=== PATIENT | female | born 1970 | race Caucasian/White ===

== ENCOUNTER → 2017-01-23 | Outpatient (CLI) | payer OTHER ==
[~2017-01-23] MED LIST: MULTTAB58 PO; NORE1CHW11 PO
--- NOTE | 2017-01-24 12:35 | MAMMOGRAPHY REPORT ---
BILATERAL DIGITAL SCREENING MAMMOGRAM TOMOSYNTHESIS WITH CAD: 01/23/2017 CLINICAL HISTORY: Routine screening. Patient has no complaints. TECHNIQUE: Breast tomosynthesis in addition to standard 2D mammography was performed. Current study was also evaluated with a Computer Aided Detection (CAD) system. COMPARISON: Comparison is made to exams dated: 01/15/2016 mammogram and 11/12/2011 mammogram - [facility]. BREAST COMPOSITION: The tissue of both breasts is heterogeneously dense, which may obscure small ma sses. FINDINGS: There is a nodular 8 mm asymmetry seen within the left lateral breast on the cc view, pos sibly projecting inferiorly, which may represent normal overlapping fibroglandular tissue although s pot compression tomosynthesis views and possible breast ultrasound are recommended for further evalu ation. The remainder of both breasts are stable compared to prior exams, without suspicious masses, calcifi cations, or areas of architectural distortion noted. IMPRESSION: ACR BI-RADS CATEGORY 0: INCOMPLETE EVALUATION: NEED ADDITIONAL IMAGING EVALUATION Left lateral breast asymmetry, for which additional imaging evaluation is recommended. The patient w ill be called to schedule an appointment. Approximately 10% of breast cancers are not detected with mammography. A negative mammographic repor t should not delay biopsy if a clinically suggestive mass is present. Rosalind Faith M.D. ah/:01/23/2017 16:49:49 Brick Carrier: Cindy Yen M, [facility] letter sent: Addl Imaging 0 BI-RADS Code: ACR BI-RADS Category 0: Incomplete Evaluation: Need Additional Imaging Evaluation
== END ==
LOC: C.MAMM 12:33
PROVIDERS: ATTEND Obstetrics & Gynecology
DX: Z12.31 Encounter for screening mammogram for malignant neoplasm of breast (principal); N64.89 Other specified disorders of breast

== ENCOUNTER → 2017-06-23 | Outpatient (CLI) | payer BC ==
--- NOTE | 2017-06-23 15:52 | MAMMOGRAPHY REPORT ---
UNILATERAL LEFT DIGITAL DIAGNOSTIC MAMMOGRAM TOMOSYNTHESIS AND TARGETED LEFT ULTRASOUND: 06/23/2017 CLINICAL HISTORY: 46 year old woman called back from screening mammography for an 8 mm nodular asymme try in the lateral left breast, best seen on the CC view but thought to project inferiorly on the MLO view. TECHNIQUE: Spot compression left CC and MLO 2-D and tomosynthesis images were obtained. COMPARISON: Comparison is made to exams dated: 11/12/2011 mammogram, 01/15/2016 mammogram, 01/23/2017 ma mmogram, and 06/23/2017 ultrasound - [facility]. BREAST COMPOSITION: The tissue of the left breast is heterogeneously dense, which may obscure small masses. FINDINGS: On the current spot compression views, the previously described 8mm nodular asymmetry in th e lateral left breast, as seen on the 01/23/2017 screening exam is no longer identified. There is ev idence of a mass on the corresponding tomosynthesis images. No focal area of architectural distortio n or suspicious microcalcifications are identified. Targeted ultrasound was performed in the lateral and inferior left breast. There is an anechoic braeden gn simple cyst in the 8:00 left breast, 1 cm from the nipple that is incidentally identified. It elis sures 4.7 x 2.9 x 3.9 mm. No other discrete solid or cystic mass is seen. IMPRESSION: ACR-BI-RADS CATEGORY 3: PROBABLY BENIGN, TARGETED ULTRASOUND ACR-BI-RADS CATEGORY 3: PRO BABLY BENIGN The 8 mm nodular asymmetry in the lateral left breast is no longer definitely identified. No suspici ous sonographic correlate was seen. However, given the conspicuous nature of the asymmetry on the screening mammograms, a short interval follow-up left diagnostic mammogram including tomosyn thesis images and possible ultrasound is recommended. Annual right mammography will also be due at t hat time (due January 2018). Approximately 10% of breast cancers are not detected with mammography. A negative mammographic report should not delay biopsy if a clinically suggestive mass is present. Marj Pham M.D. ay/:06/23/2017 12:43:51 Mop Man: Merari CARY(R)(M), [facility] letter sent: Follow Up Recommended 3 BI-RADS Code: ACR-BI-RADS Category 3: Probably Benign Ultrasound BI-RADS: ACR-BI-RADS Category 3: Pr obably Benign
== END | disposition home or self-care (01) ==
LOC: C.MAMM 09:22
PROVIDERS: ATTEND Obstetrics & Gynecology
DX: N64.89 Other specified disorders of breast (principal)

== ENCOUNTER → 2018-04-30 | Outpatient (CLI) | payer BC ==
--- NOTE | 2018-04-30 16:05 | MAMMOGRAPHY REPORT ---
BILATERAL DIGITAL DIAGNOSTIC MAMMOGRAM TOMOSYNTHESIS WITH CAD: 04/30/2018 CLINICAL HISTORY: Six-month follow-up of left breast asymmetry. Due for routine mammography of the ri ght breast. TECHNIQUE: The study was acquired using full field digital technology and interpreted from soft copy. Breast tomosynthesis in addition to standard 2D mammography was performed. Current study was also ev aluated with a Computer Aided Detection (CAD) system. Bilateral CC and MLO 2D and tomosynthesis imag es were obtained. COMPARISON: Comparison is made to exams dated: 06/23/2017 mammogram, 01/23/2017 mammogram, 01/15/2016 ma mmogram, 06/23/2017 ultrasound, and 11/12/2011 mammogram - [facility]. BREAST COMPOSITION: The tissue of both breasts is heterogeneously dense, which may obscure small mass es. FINDINGS: The previously described nodular asymmetry seen within the left lateral breast on the cc view is no l onger evident. Normal fibroglandular tissue is seen in this region, without evidence of a mass or ot her suspicious mammographic abnormality. Findings are benign and compatible with normal fibroglandul ar tissue. The remainder of both breasts are stable compared to prior exams, without suspicious mass es, calcifications, or areas of architectural distortion noted. IMPRESSION: The left breast asymmetry is no longer evident, and is benign and compatible with normal fibroglandul ar tissue. There is no mammographic evidence of malignancy in either breast. A 1 year screening mamm ogram is recommended.(05/01/2019) The patient has been verbally notified of the results. Some breast cancers are not detected with mammography. A negative mammographic report should not natan y biopsy if a clinically suggestive mass is present. Rosalind Faith M.D. /:04/30/2018 11:31:42 Peg Driver: RT Racquel(Cindy)(M), [facility] letter sent: Normal 1/2 BI-RADS Code: ACR BI-RADS Category 2: Benign
== END | disposition home or self-care (01) ==
LOC: C.MAMM 10:39
PROVIDERS: ATTEND Obstetrics & Gynecology
DX: R92.8 Other abnormal and inconclusive findings on diagnostic imaging of breast (principal)